=== PATIENT | male | born 1985 | race Hispanic/Latino ===

== ENCOUNTER 2023-12-29 14:42 | Emergency (ER) | payer SELFPAY ==
[~2023-12-29] VITALS: Ht 170.2 cm; Wt 81.6 kg
[2023-12-29] MEDS: FLUORESCEIN SODIUM 1 STRIP STRIP OP SCH (16:13)
[2023-12-29] MEDS: IBUPROFEN 800 MG TAB PO ONE (16:14)
[2023-12-29] MEDS: TETRACAINE HCL 0.5% 4 ML OPHTH SOLN OP STA (16:14)
[2023-12-29 16:16] VITALS: BP 160/75; PULSE 85; RESP 16; TEMP 98.3; O2SAT 98
[2023-12-29] MEDS ORDERED: IBUP-2077 PO (16:29)
[2023-12-29] MEDS ORDERED: ERYT1OIN7 OP (16:29)
[2023-12-29] MEDS: ERYTHROMYCIN BASE 0.5% OPHTH OINT 1 GM TUBE OD STA (16:35)
== END 2023-12-29 16:41 | disposition home or self-care (01) ==
LOC: EDH 14:42
DX: S05.01XA Injury of conjunctiva and corneal abrasion without foreign body, right eye, initial encounter (principal); Z98.890 Other specified postprocedural states; X58.XXXA Exposure to other specified factors, initial encounter; Y93.89 Activity, other specified; Y92.89 Other specified places as the place of occurrence of the external cause; Y99.8 Other external cause status